=== PATIENT | male | born 1980 | race African-American/Black ===

== ENCOUNTER 2017-04-20 13:31 | Emergency (ER) | payer OTHER ==
[~2017-04-20] VITALS: Ht 185.4 cm; Wt 77.1 kg
[~2017-04-20 13:31] MED LIST: NO DOZ200 MG PO
[2017-04-20] MEDS ORDERED: RISPERDAL0.5 MG PO (15:02)
[2017-04-20] MEDS ORDERED: HYDROXYZINE HCL25 M1 PO (15:03)
[2017-04-20 15:06] LABS: ABSOLUTE NEUTROPHILS 3.8 thou/uL (1.4-8.2); BASOPHILS 1.3 % (0.0-2.0); EOSINOPHILS 1.5 % (0.0-3.0); HEMATOCRIT 41.1 % (42.0-52.0); HEMOGLOBIN 13.7 gm/dL (14.0-18.0); LYMPHOCYTES 33.4 % (24.0-44.0); MCH 29.7 pg (26.0-34.0); MCHC 33.3 g/dL (28.0-37.0); MONOCYTES 10.7 % (1.0-8.0); PLATELET COUNT 251 thou/uL (150-400); POLYS 53.1 % (36.0-66.0); RBC 4.62 mil/uL (4.50-6.00); RDW 13.8 % (10.5-14.5); WBC 7.1 thou/uL (4.0-11.0)
[2017-04-20 15:16] LABS: CALCIUM 8.2 mg/dL (8.5-10.1); CREATININE 1.4 mg/dL (0.7-1.3); POTASSIUM 4.4 mmol/L (3.5-5.1)
[2017-04-20 15:22] LABS: ALBUMIN 3.2 g/dL (3.4-5.0); TOTAL BILIRUBIN 0.6 mg/dL (<0.1-1.0); TOTAL PROTEIN 5.8 g/dL (6.4-8.2)
[2017-04-20] MEDS ORDERED: ONDANSETRON HCL4 M2 PO (16:11)
[2017-04-20 16:22] LABS: URINE BILIRUBIN NEGATIVE (Negative); URINE BLOOD NEGATIVE (Negative); URINE CLARITY CLEAR; URINE COLOR YELLOW; URINE GLUCOSE-RANDOM* NEGATIVE (Negative); URINE KETONES NEGATIVE (Negative); URINE LEUKOCYTES NEGATIVE (Negative); URINE NITRITE NEGATIVE (Negative); URINE PROTEIN (DIPSTICK) NEGATIVE (Negative); URINE SPECIFIC GRAVITY 1.015 (1.005-1.035); URINE UROBILINOGEN 0.2 E.U./dl (0.2-1.0)
== END 2017-04-20 16:50 | disposition home or self-care (01) ==
LOC: ER 13:31
PROVIDERS: Physician Assistant
DX: R10.30 Lower abdominal pain, unspecified (principal); R11.2 Nausea with vomiting, unspecified; N17.9 Acute kidney failure, unspecified; F17.210 Nicotine dependence, cigarettes, uncomplicated

== ENCOUNTER 2020-04-19 00:27 | Emergency (ER) | payer OTHER ==
[~2020-04-19] VITALS: Ht 185.4 cm; Wt 74.8 kg
[~2020-04-19 00:27] MED LIST changes: +HYDROXYZINE HCL25 M1 PO; +ONDANSETRON HCL4 M2 PO; +RISPERDAL0.5 MG PO
[2020-04-19 01:04] LABS: ABSOLUTE NEUTROPHILS 2.7 thou/uL (1.4-8.2); BASOPHILS 1.6 % (0.0-2.0); EOSINOPHILS 0.7 % (0.0-3.0); HEMATOCRIT 36.6 % (42.0-52.0); HEMOGLOBIN 12.2 gm/dL (14.0-18.0); LYMPHOCYTES 27.4 % (24.0-44.0); MCH 31.4 pg (26.0-34.0); MCHC 33.2 g/dL (28.0-37.0); MCV 94.6 fL (80.0-100.0); MONOCYTES 8.6 % (1.0-8.0); PLATELET COUNT 210 thou/uL (150-400); POLYS 61.7 % (36.0-66.0); RBC 3.87 mil/uL (4.50-6.00); RDW 15.3 % (10.5-14.5); WBC 4.5 thou/uL (4.0-11.0)
[2020-04-19 01:10] LABS: ANION GAP 12 mmol/L (7-16); BUN 12 mg/dL (7-18); CALCIUM 8.2 mg/dL (8.5-10.1); CHLORIDE 103 mmol/L (98-107); CO2 24 mmol/L (21-32); GLUCOSE 111 mg/dL (74-106); POTASSIUM 3.1 mmol/L (3.5-5.1); SODIUM 139 mmol/L (136-145)
[2020-04-19 01:25] LABS: ALBUMIN 3.7 g/dL (3.4-5.0); SGOT 135 U/L (15-37); SGPT 145 U/L (16-63); TOTAL BILIRUBIN 0.5 mg/dL (0.2-1.0); TOTAL PROTEIN 6.7 g/dL (6.4-8.2); TROPONIN-I <0.06 ng/mL (<0.06)
[2020-04-19 06:36] VITALS: BP 139/79
--- NOTE | 2020-04-20 07:20 | EKG ---
[address] [place] [employer] [place] [address] ELECTROCARDIOGRAM REPORT Name: JOHNNY PUTNAM Room #: [id number] Admission: 04/19/20 Attend Phys: Discharge: 04/19/20 Date of : 80 Report #: [id number] [facility] ED Test Date: 2020-04-19 Test Time: 00:39:17 Pat Name: JOHNNY PUTNAM Department: Room: Gender: M Deposition Operator: debbi : 1980 Requested By: Sheldon Odonnell Order Number: [id number] MD: Clark Plummer Measurements Intervals [place] Rate: 73 P: 70 [place]: 174 QRS: 119 QRSD: 108 T: -19 QT: 390 QTc: 430 Interpretive Statements Sinus rhythm Right axis deviation Borderline T abnormalities, inferior leads No previous ECG available for comparison Electronically Signed On 04-20-2020 7:20:40 [employer] by Clark Plummer [email or web address] <ELECTRONICALLY SIGNED> By: Clark Plummer MD, [facility] 04/20/20 0720 0039 0039 Clark Plummer MD, FACC /EPI
== END 2020-04-19 06:37 | disposition home or self-care (01) ==
LOC: ER 00:27
PROVIDERS: Emergency Medicine
DX: R07.9 Chest pain, unspecified (principal); F10.129 Alcohol abuse with intoxication, unspecified; F17.210 Nicotine dependence, cigarettes, uncomplicated; Z79.899 Other long term (current) drug therapy; Y90.9 Presence of alcohol in blood, level not specified